=== PATIENT | female | born 1935 | race Caucasian/White ===

== ENCOUNTER → 2018-06-16 | Outpatient (CLI) | payer OTHER | LOC: HYPER 06:47 | DX: T81.31XD Disruption of external operation (surgical) wound, not elsewhere classified, subsequent encounter (principal); L97.822 Non-pressure chronic ulcer of other part of left lower leg with fat layer exposed; L97.812 Non-pressure chronic ulcer of other part of right lower leg with fat layer exposed; I89.0 Lymphedema, not elsewhere classified; I10 Essential (primary) hypertension; L84 Corns and callosities; E66.3 Overweight; M99.04 Segmental and somatic dysfunction of sacral region; M25.552 Pain in left hip; M54.42 Lumbago with sciatica, left side; Z79.01 Long term (current) use of anticoagulants; Y83.8 Other surgical procedures as the cause of abnormal reaction of the patient, or of later complication, without mention of misadventure at the time of the procedure ==

== ENCOUNTER → 2018-06-24 | Outpatient (CLI) | payer OTHER | LOC: HYPER 07:04 | DX: T81.31XD Disruption of external operation (surgical) wound, not elsewhere classified, subsequent encounter (principal); L97.822 Non-pressure chronic ulcer of other part of left lower leg with fat layer exposed; L97.812 Non-pressure chronic ulcer of other part of right lower leg with fat layer exposed; I89.0 Lymphedema, not elsewhere classified; I10 Essential (primary) hypertension; E66.3 Overweight; M99.04 Segmental and somatic dysfunction of sacral region; M54.41 Lumbago with sciatica, right side; M54.42 Lumbago with sciatica, left side; Z79.01 Long term (current) use of anticoagulants; Y83.8 Other surgical procedures as the cause of abnormal reaction of the patient, or of later complication, without mention of misadventure at the time of the procedure ==

== ENCOUNTER → 2018-07-16 | Outpatient (CLI) | payer OTHER | LOC: HYPER 06:41 | DX: T81.31XD Disruption of external operation (surgical) wound, not elsewhere classified, subsequent encounter (principal); L97.822 Non-pressure chronic ulcer of other part of left lower leg with fat layer exposed; I89.0 Lymphedema, not elsewhere classified; I87.2 Venous insufficiency (chronic) (peripheral); I10 Essential (primary) hypertension; E66.3 Overweight; M99.04 Segmental and somatic dysfunction of sacral region; M25.552 Pain in left hip; M54.41 Lumbago with sciatica, right side; M54.42 Lumbago with sciatica, left side; Z79.01 Long term (current) use of anticoagulants; Y83.8 Other surgical procedures as the cause of abnormal reaction of the patient, or of later complication, without mention of misadventure at the time of the procedure ==

== ENCOUNTER → 2018-07-30 | Outpatient (CLI) | payer OTHER | LOC: HYPER 06:48 | DX: T81.31XD Disruption of external operation (surgical) wound, not elsewhere classified, subsequent encounter (principal); L97.822 Non-pressure chronic ulcer of other part of left lower leg with fat layer exposed; L97.812 Non-pressure chronic ulcer of other part of right lower leg with fat layer exposed; I87.2 Venous insufficiency (chronic) (peripheral); I89.0 Lymphedema, not elsewhere classified; I10 Essential (primary) hypertension; E66.3 Overweight; M99.04 Segmental and somatic dysfunction of sacral region; M25.552 Pain in left hip; M54.41 Lumbago with sciatica, right side; M54.42 Lumbago with sciatica, left side; Z79.01 Long term (current) use of anticoagulants; Y83.8 Other surgical procedures as the cause of abnormal reaction of the patient, or of later complication, without mention of misadventure at the time of the procedure ==

== ENCOUNTER → 2019-03-02 | Outpatient (CLI) | payer OTHER | LOC: HYPER 10:24 | DX: I89.0 Lymphedema, not elsewhere classified (principal); R26.89 Other abnormalities of gait and mobility; I87.2 Venous insufficiency (chronic) (peripheral); L84 Corns and callosities; M62.81 Muscle weakness (generalized); M41.9 Scoliosis, unspecified; Z96.659 Presence of unspecified artificial knee joint; Z79.01 Long term (current) use of anticoagulants ==